=== PATIENT | female | born 1955 | race Caucasian/White ===

== ENCOUNTER 2016-12-12 16:10 | Emergency (ER) | payer MEDICARE | END 2016-12-12 17:55 | disposition home or self-care (01) | LOC: ER1 16:10 | DX: L02.416 Cutaneous abscess of left lower limb (principal); I25.2 Old myocardial infarction; Z85.3 Personal history of malignant neoplasm of breast; Z90.49 Acquired absence of other specified parts of digestive tract; F17.210 Nicotine dependence, cigarettes, uncomplicated; Z88.8 Allergy status to other drugs, medicaments and biological substances; Z79.82 Long term (current) use of aspirin | CPT/HCPCS: 10061; 87070; 87205; 99283 ==